=== PATIENT | female | born 2000 | race Two or more races ===

== ENCOUNTER 2023-11-27 08:23 | Emergency (ER) | payer BC, OTHER ==
[2023-11-27 08:48] VITALS: BP 110/57; PULSE 78; RESP 20; TEMP 98; BMI 20.7
[2023-11-27 10:09] LABS: BASO % 0.3 % (0-2.0); EOS % 0.1 % (0-4.5); HEMOGLOBIN 12.2 GM/dL (10.7-15.3); LYMPH % 7.6 % (8-40); MCH 30.5 pg (25.7-33.7); MCHC 34.7 g/dl (32.0-36.0); MEAN CELL VOLUME 87.9 fl (80-96); MEAN PLT VOLUME 8.7 fl (7.5-11.1); MONO % 5.6 % (3.8-10.2); NEUT % 86.4 % (42.8-82.8); PLATELET COUNT 221 10^3/uL (134-434); RBC 3.98 M/mm3 (3.60-5.2); RDW 13.2 % (11.6-15.6); WHITE BLOOD COUNT 12.6 K/mm3 (4.0-10.0)
[2023-11-27 10:12] LABS: INR 1.06 (0.83-1.09)
[2023-11-27 10:14] LABS: ACTIVATED PTT 31.1 SECONDS (25.2-36.5)
[2023-11-27 10:50] LABS: POTASSIUM 3.7 mmol/L (3.5-5.1)
[2023-11-27 10:52] LABS: ALBUMIN 3.4 g/dl (3.4-5.0); BLOOD UREA NITROGEN 7.4 mg/dL (7-18); CALCIUM 8.8 mg/dL (8.5-10.1)
[2023-11-27 10:56] LABS: CREATININE 0.8 mg/dL (0.55-1.3)
[2023-11-27 10:57] LABS: BILIRUBIN,TOTAL 0.4 mg/dL (0.2-1); TOT PROT 6.5 g/dl (6.4-8.2)
== END 2023-11-27 13:10 | disposition home or self-care (01) ==
LOC: JER 08:23
DX: O36.4XX0 Maternal care for intrauterine death, not applicable or unspecified (principal)
CPT/HCPCS: 36415; 76801-TC; 80053; 84702; 85025; 85610; 85730; 86850; 86900; 86901; 99284-25